=== PATIENT | male | born 2000 | race Hispanic/Latino ===

== ENCOUNTER 2018-08-30 13:34 | Emergency (ER) | payer OTHER ==
--- NOTE | 2018-09-01 11:29 | EKG ---
Test Reason : Blood Pressure : / mmHG Vent. Rate : 069 BPM Atrial Rate : 069 BPM P-R Int : 138 ms QRS Dur : 090 ms QT Int : 386 ms P-R-T Axes : 025 058 039 degrees QTc Int : 413 ms Normal sinus rhythm with sinus arrhythmia Normal ECG Confirmed by BRYAN MURO, YOGI ([id number]), scientific editor SARAH DICKERSON ([id number]) on 09/01/2018 11:29:00 AM Referred By: Confirmed By:YOGI ADAMS MD
== END 2018-08-30 17:11 | disposition home or self-care (01) ==
LOC: ERS 13:34
DX: F41.9 Anxiety disorder, unspecified (principal)
CPT/HCPCS: 93005